=== PATIENT | male | born 2000 | race Caucasian/White ===

== ENCOUNTER → 2024-12-01 | Outpatient (CLI) | payer OTHER, SELFPAY ==
--- NOTE | 2024-12-01 11:30 | CYST_PTH ---
PATIENT: SILAS CHAVIS LOC: [facility] U#:[id number] AGE/SX: 24/M ROOM: RE12/01/[address]: Dr. John Alonzo MD : 2000 BED: DIS: 12/01/2024 SPEC #: [id number] RECD: 12/01/24 14:15 STATUS: CHUY ROMAN #: [id number] KWABENA: 12/01/24 11:[address]: John Alonzo DEPT: SURGICAL PATHOLOGY RECD BY: Abelino Chapman ENTERED: 12/01/24 15:02 SP TYPE: Cyst OTHR DR: Dr. John Yadav, Tissues: A - CYST B - CYST C - CYST Procedures: Surgery Specimen Level III HEADER OPERATION: Excision cyst x3 on neck PRE-OP DIAGNOSIS: Neck cysts TISSUE SUBMITTED: A- Left neck, B- Posterior neck, C- Inferior neck MICROSCOPIC DIAGNOSIS A. Neck, left, cyst, excision: - Epidermal inclusion cyst. B. Neck, posterior, cyst, excision: - Epidermal inclusion cyst, inflamed. C. Neck, inferior, cyst, excision: - Epidermal inclusion cyst. MICROSCOPIC DESCRIPTION Slides are reviewed. GROSS DESCRIPTION Received in 3 formalin containers labeled with the patient's name and date of . Designated as: A. Inferior neck is a campos-pink to white apparent cyst admixed with sebaceous like material, collectively measuring 1.9 x 1.5 x 0.3 cm in aggregate. Entirely submitted in 1 cassette. B. Posterior neck is a 1.9 x 0.9 x 0.4 cm campos-pink rubbery portion of tissue. Sectioning reveals a 0.4 x 0.4 cm campos-white possible cyst. Entirely submitted in 1 cassette. C. Left neck is a 3.4 x 2.4 x 1.4 cm campos-pink ruptured cyst expelling campos-white sebaceous like material. Entry Level Project Coordinator sections are submitted in 1 cassette. MA 12/01/2024 CPT:[id number]
== END | disposition home or self-care (01) ==
LOC: LABSPEC 14:22
PROVIDERS: PCP Family Medicine Hospice and Palliative Medicine; Referring Provider Surgery Plastic and Reconstructive Surgery; Visit Provider Surgery Plastic and Reconstructive Surgery
DX: L72.0 Epidermal cyst (principal); L08.9 Local infection of the skin and subcutaneous tissue, unspecified
CPT/HCPCS: 88304

== ENCOUNTER → 2024-12-28 | Outpatient (CLI) | payer OTHER, SELFPAY ==
[2024-12-28 14:00] LABS: Mucous, Urine 0 SEEN /hpf (<or=2+)
[2024-12-28 17:39] LABS: Color, Urine Yellow (Yellow); Glucose, Dipstick Normal (Normal); Ketone-Dipstick Negative (Negative); Leukocyte Esterase-Dipstick Negative /ul (Negative); Nitrite-Dipstick Negative (Negative); Occult Blood-Urine Negative /ul (Negative); Protein-Dipstick 30 mg/dl (Negative); Specific Gravity, Urine 1.010 (1.002-1.030); Urine Bilirubin Dipstick Negative (Negative)
[2024-12-28 18:02] LABS: Hematocrit 45.0 % (40-54); Hemoglobin 15.6 g/dL (13.0-16.5); Immature Granulocytes Count 0.020 X10^3/uL (0.0-0.0); Mean Corp Hgb Conc 34.7 g/dL (32-36); Mean Corpuscular Volume 85.2 fL (80-94); POSITIVE COUNT YES; RBC Distribution Width CV 12.1 % (11.6-14.6); RBC Distribution Width SD 37.5 fl (35.1-43.9); Red Blood Count 5.28 M/mm3 (4.6-6.2); White Blood Count 7.3 K/mm3 (4.4-11.0)
[2024-12-28 18:40] LABS: Red Blood Cells-Urine 0-5 SEEN /hpf (0-5); Squamous Epithelial Cells - UA 0-5 SEEN /hpf (0-5)
[2024-12-28 19:10] LABS: AST(SGOT) 26 U/L (<=37); Alanine Aminotransfer ALT/SGPT 37 U/L (<=46); Albumin, Serum 4.7 g/dL (3.5-5.0); Alkaline Phosphatase 80 U/L (40-129); Anion Gap 13 (5-15); BUN 17 mg/dL (4-19); BUN/Creat Ratio 14.8 RATIO (10-20); Calcium,Total 9.7 mg/dL (7.6-11.0); Carbon Dioxide 22.9 mmol/L (21.0-32.0); Chloride 102 mmol/L (98-108); Globulin 2.5 g/dL (2.2-4.2); Glucose 102 mg/dL (70-99); Hepatitis B Surface Antigen Nonreactive (Nonreactive); Hepatitis C Antibody Nonreactive (Nonreactive); Potassium 4.1 mmol/L (3.3-5.1)
[2024-12-28 23:10] LABS: Differential Comment SCANNED
[2024-12-29 08:47] LABS: Platelet Count 2 K/mm3 (150-450)
[2025-01-03 13:29] LABS: ANTINUCLEAR ANTIBODIES DIRECT Negative (Negative); Anti-dsDNA Ab <1 IU/mL (0-9)
== END | disposition home or self-care (01) ==
LOC: MTLAB 13:55
PROVIDERS: PCP Family Medicine Hospice and Palliative Medicine; Referring Provider Physician Assistant Medical; Visit Provider Physician Assistant Medical
DX: L30.9 Dermatitis, unspecified (principal)
CPT/HCPCS: 36415; 80053; 81001; 85025; 86038; 86060; 86225; 86706; 86803; 87340